=== PATIENT | female | born 1960 | race Caucasian/White ===

== ENCOUNTER 2016-12-13 05:39 | Day surgery (SDC) | payer MEDICARE ==
[~2016-12-13] VITALS: Ht 165.1 cm; Wt 71.5 kg
[2016-12-13 06:18] VITALS: BP 146/90
[2016-12-13 06:28] VITALS: BP 146/90
[2016-12-13] MEDS ORDERED: BUPR100T11 PO (06:36)
[2016-12-13] MEDS ORDERED: SERT100T5 PO (06:36)
[2016-12-13] MEDS ORDERED: SUMA100T4 PO (06:36)
[2016-12-13] MEDS ORDERED: METH36TA4 PO (06:36)
[2016-12-13] MEDS ORDERED: VALA500T PO (06:36)
[2016-12-13] MEDS ORDERED: IBUP200C5 PO (06:36)
[2016-12-13] MEDS ORDERED: CHOL100011 PO (06:36)
[2016-12-13] MEDS ORDERED: HYDR-3245 PO (06:36)
[2016-12-13] MEDS ORDERED: LACTATED RINGERS 1,000 ML IV SCH (06:39)
[2016-12-13] MEDS ORDERED: FENTANYL PF 100 MCG/2ML ONE ×2 (06:53→06:54)
[2016-12-13] MEDS ORDERED: MIDAZOLAM 1 MG/ML, 2ML ONE (06:54)
[2016-12-13] MEDS ORDERED: LIDOCAINE-MPF 2% ,5ML ONE (07:01)
[2016-12-13] MEDS ORDERED: ROPIvacaine/PF 0.5%, 30 ML ONE (07:01)
[2016-12-13] MEDS ORDERED: EPINEPHRINE 1 MG/ML, 1ML ONE (07:06)
[2016-12-13] MEDS ORDERED: BUPIVACAINE/PF 0.5% ONE (07:06)
[2016-12-13] MEDS ORDERED: PROPOFOL 10 MG/ML, 20ML ONE (07:44)
[2016-12-13] MEDS ORDERED: ONDANSETRON 2MG/ML, 2ML ONE ×2 (07:44→10:12)
[2016-12-13] MEDS ORDERED: DEXAMETHASONE 4 MG/ML, 1ML ONE (07:44)
[2016-12-13] MEDS ORDERED: KETOROLAC 30 MG/1 ML ONE (07:44)
[2016-12-13] MEDS ORDERED: CEFAZOLIN 1,000 MG ONE (07:44)
[2016-12-13] MEDS ORDERED: ALBUTEROL/IPRATROPIUM 2.5MG/0.5MG, 3 ML NPPB PRN (09:30)
[2016-12-13] MEDS ORDERED: MIDAZOLAM 1 MG/ML, 2ML IV PRN (09:30)
[2016-12-13] MEDS ORDERED: FENTANYL PF 100 MCG/2ML IV PRN (09:30)
[2016-12-13] MEDS ORDERED: hydrALAzine 20 MG/ML, 1ML IV PRN (09:30)
[2016-12-13] MEDS ORDERED: METOPROLOL 1 MG/ML, 5ML IV PRN (09:30)
[2016-12-13] MEDS ORDERED: ALBUTEROL SULFATE 2.5 MG/3 ML NPPB PRN (09:30)
[2016-12-13] MEDS ORDERED: PROMETHAZINE 25 MG/ML, 1ML IV PRN (09:30)
[2016-12-13] MEDS ORDERED: HYDROmorphone 1 MG/ML, 1ML IV PRN (09:30)
[2016-12-13] MEDS ORDERED: ONDANSETRON 2MG/ML, 2ML IVPush PRN (09:30)
[2016-12-13] MEDS ORDERED: LABETALOL 5MG/ML, 20ML IV PRN (09:30)
[2016-12-13] MEDS ORDERED: EPHEDRINE 50 MG/ML, 1ML IVPush PRN (09:30)
[2016-12-13] MEDS ORDERED: OXYcodone 5 MG/5 ML ORAL.SOL UDC PO PRN (09:30)
[2016-12-13] MEDS ORDERED: HYDROcodone/APAP 7.5-325MG/15ML UDC PO PRN (09:30)
[2016-12-13] MEDS ORDERED: ACETAMINOPHEN 325 MG TABLET PO PRN (09:30)
[2016-12-13] MEDS ORDERED: HYDROcodone/APAP 7.5-325MG/15ML UDC ONE (09:52)
== END 2016-12-13 11:20 | disposition home or self-care (01) ==
LOC: OUT 05:39
PROVIDERS: ATTEND Orthopaedic Surgery Orthopaedic Surgery of the Spine
DX: S82.852A Displaced trimalleolar fracture of left lower leg, initial encounter for closed fracture (principal); X58.XXXA Exposure to other specified factors, initial encounter; Y93.89 Activity, other specified; Y92.89 Other specified places as the place of occurrence of the external cause; Y99.8 Other external cause status; F32.9 Major depressive disorder, single episode, unspecified; F17.210 Nicotine dependence, cigarettes, uncomplicated
CPT/HCPCS: 27822; 73610; 76000; C1713; C1769; J0690; J1100; J1885; J2250; J2405; J2704; J2795; J3010; J3490; J7120; J0171